=== PATIENT | male | born 1945 | race Caucasian/White ===

== ENCOUNTER 2024-08-14 07:07 | Inpatient (IN) | payer BC ==
[~2024-08-14] VITALS: Ht 185.4 cm; Wt 81.0 kg
[2024-08-14 07:30] VITALS: PULSE 97; RESP 22; O2SAT 95
[2024-08-14] MEDS: ipratropium/albuterol 3ml nebule NEB ONE (07:35)
[2024-08-14 07:38] VITALS: PULSE 83; RESP 22; O2SAT 98
[2024-08-14 07:39] LABS: BASOPHILS % (AUTO) 0.6 % (0-1); EOSINOPHILS # (AUTO) 0.4 X10'3 (0-0.9); EOSINOPHILS % (AUTO) 5.7 % (0-6); HEMATOCRIT 42.3 % (42.0-52.0); HEMOGLOBIN 13.7 g/dl (14.0-17.9); LYMPHOCYTES # (AUTO) 0.9 X10'3 (1.1-4.8); LYMPHOCYTES % (AUTO) 12.2 % (21-51); MEAN CORPUSCULAR HEMOGLOBIN 28.7 PG (27.0-31.0); MEAN CORPUSCULAR HGB CONC 32.4 g/dL (33.0-36.5); MEAN CORPUSCULAR VOLUME 88.7 FL (78-98); MEAN PLATELET VOLUME 9.8 FL (7.4-10.4); MONOCYTES # (AUTO) 0.5 X10'3 (0-0.9); MONOCYTES % (AUTO) 6.7 % (2-12); NEUTROPHILS # (AUTO) 5.3 X10'3 (1.8-7.7); NEUTROPHILS % (AUTO) 74.8 % (42-75); PLATELET COUNT 96 X10'3 (140-440); RED BLOOD COUNT 4.77 X10'6 (4.70-6.10); RED CELL DISTRIBUTION WIDTH 14.2 % (11.5-14.5); WHITE BLOOD COUNT 7.2 X10'3 (4.5-11.0)
[2024-08-14 08:06] LABS: ALANINE AMINOTRANSFERASE 13 U/L (12-78); ALBUMIN 3.4 G/DL (3.4-5.0); ALBUMIN/GLOBULIN RATIO 0.8 (1.1-1.5); ALKALINE PHOSPHATASE 83 IU/L (46-116); ANION GAP 7 (8-16); ASPARTATE AMINO TRANSFERASE 21 U/L (10-37); BILIRUBIN,TOTAL 0.4 MG/DL (0.1-1.0); BLOOD UREA NITROGEN 30 MG/DL (7-18); CALCIUM 8.8 MG/DL (8.5-10.1); CHLORIDE 100 MMOL/L (99-107); CREATININE 1.43 MG/DL (0.60-1.10); GLUCOSE 254 MG/DL (70-104); POTASSIUM 4.5 MMOL/L (3.5-5.1); PRO BRAIN NATRIURETIC PEPTIDE 951 PG/ML (0-450); SODIUM 137 MMOL/L (135-145); TOTAL CARBON DIOXIDE 29.6 MMOL/L (24-32); TOTAL PROTEIN 7.9 G/DL (6.4-8.2); eGFR 48 ML/MIN
[2024-08-14] MEDS: methylPREDNISolone sod succ 125mg/2ml vial IV ONE (08:09)
[2024-08-14] MEDS: CefTRIAXone 2gm/D5W 50ml BAG 50 ML IV ONE (09:27)
[2024-08-14] MEDS: normal saline 1000ML IV soln IVB ONE ×3 (09:27→11:30)
[2024-08-14] MEDS: azithromycin/NS 500mg/250ml 250 ML IV STA (09:32)
[2024-08-14] MEDS ORDERED: HYDROcodone/acetaminophen 5mg/325mg tablet PO PRN (09:45)
[2024-08-14] MEDS ORDERED: ondansetron/PF 4mg/2ml inj IV PRN (09:45)
[2024-08-14] MEDS: PERFLUTREN PROTEIN-A MICROSPHR (Optison) 0.22 MG/ML 3ML VIAL IV ONE (09:45)
[2024-08-14] MEDS ORDERED: HYDROcodone/acetaminophen 10/325mg tab PO PRN (09:45)
[2024-08-14] MEDS ORDERED: acetaminophen 325mg tablet PO PRN ×2 (09:45)
[2024-08-14] MEDS ORDERED: potassium Cl 20 mEq SR tablet PO PRN ×2 (09:45)
[2024-08-14] MEDS ORDERED: magnesium hydroxide 30ml (MOM) UD suspension PO PRN (09:45)
[2024-08-14] MEDS ORDERED: potassium Cl 40MEQ/1/2NS 520ml 520 ML IV PRN (09:45)
[2024-08-14] MEDS ORDERED: mag hydrox/Alum hydrox/simeth 30ml oral suspension PO PRN (09:45)
[2024-08-14 10:22] LABS: ABG HCO3 25.4 mmol/L (21.0-28.0); ABG OXYGEN SATURATION 92.7 % (94.0-98.0); ABG PCO2 (T) 44.2 mmHg (35.0-48.0); ABG PH (T) 7.378 (7.350-7.450); ABG PO2 (T) 64.9 mmHg (83.0-108.0); ALLEN'S TEST POSITIVE; FCOHb 0.3 % (0.5-1.5); FHHb 7.3 % (0.0-5.0); FMetHb 0.1 % (0.0-1.5); FO2Hb 92.3 % (94.0-98.0); TOTAL HEMOGLOBIN 13.1 G/dl (13.5-17.5)
[2024-08-14] MEDS: normal saline 1000ml 1,000 ML IV SCH (11:31)
[2024-08-14] MEDS ORDERED: glucagon, human recombinant 1mg kit SUBCUT PRN (11:50)
[2024-08-14] MEDS ORDERED: DEXTROSE 15 GM of carb/4 tabs (each vial/BOTTLE has 4 tablets) PO PRN ×2 (11:50)
[2024-08-14] MEDS ORDERED: dextrose 50%-water 50ml dispensing syringe IV PRN ×2 (11:50)
[2024-08-14] MEDS: INSULIN LISPRO 100 UNIT/ML INSULN.PEN MULTI-DOSE SQ SCH (12:00)
[2024-08-14 12:31] LABS: BILIRUBIN,URINE NEGATIVE (Neg); CLARITY,URINE CLOUDY (Clear); COLOR,URINE YELLOW (Yellow); GLUCOSE, URINE 250 mg/dl (Neg); KETONES,URINE NEGATIVE (Neg); LEUKOCYTE ESTERASE ,URINE SMALL (Neg); NITRITES, URINE POSITIVE (Neg); OCCULT BLOOD,URINE MODERATE (Neg); PROTEIN,URINE 30 mg/dl (Neg); UROBILINOGEN,URINE 0.2 E.U/dL (0.2-1.0)
[2024-08-14 12:41] LABS: UA COLLECTION TYPE OTHER
[2024-08-14 12:42] LABS: BACTERIA,URINE 4+ /HPF (Neg); SQUAMOUS EPITHELIAL CELL,UR FEW /LPF (FEW)
[2024-08-14 12:43] LABS: AMORPHOUS URATES 3+
[2024-08-14 12:44] LABS: WBC CLUMPS,URINE FEW /HPF (NEGATIVE); WBC,URINE 50-100 /HPF (0-4)
[2024-08-14 12:51] LABS: HEMOGLOBIN A1C 7.9 % (4.5-6.2)
[2024-08-14 19:30] VITALS: BP 122/64; PULSE 68; RESP 22; TEMP 97.4; O2SAT 94
[2024-08-14 20:00] VITALS: RESP 20; O2SAT 94
[2024-08-14] MEDS: K and/or MAG REPLACEMENT MC SCH (20:00)
[2024-08-14 22:00] VITALS: BP 139/77; PULSE 59; RESP 21; TEMP 97.6; O2SAT 94
[2024-08-14] MEDS: docusate sod 100mg capsule PO SCH (22:03)
[2024-08-14] MEDS: heparin, porcine 5000 units/ml vial SQ SCH (22:04)
[2024-08-14] MEDS: methylPREDNISolone sod succ 125mg/2ml vial IV SCH (22:04)
[2024-08-14] MEDS: insulin glargine (Lantus) pen - multi-dose SQ SCH (22:08)
[2024-08-15] VITALS (20 sets, daily range): BP systolic 100–152; BP diastolic 65–98; PULSE 26–98; RESP 18–28; TEMP 97.3–98.5; O2SAT 88–97
[2024-08-15] MEDS: CefTRIAXone/D5W-Rocephin 1gm 50 ML IV SCH (07:32)
[2024-08-15] MEDS: azithromycin 250mg tablet PO SCH (07:33)
[2024-08-15 07:40] LABS: BASOPHILS % (AUTO) 0.1 % (0-1); EOSINOPHILS % (AUTO) 0 % (0-6); HEMATOCRIT 40.6 % (42.0-52.0); HEMOGLOBIN 13.3 g/dl (14.0-17.9); LYMPHOCYTES # (AUTO) 0.4 X10'3 (1.1-4.8); LYMPHOCYTES % (AUTO) 4.4 % (21-51); MEAN CORPUSCULAR HEMOGLOBIN 28.6 PG (27.0-31.0); MEAN CORPUSCULAR HGB CONC 32.8 g/dL (33.0-36.5); MEAN CORPUSCULAR VOLUME 87.3 FL (78-98); MEAN PLATELET VOLUME 10.7 FL (7.4-10.4); MONOCYTES # (AUTO) 0.1 X10'3 (0-0.9); MONOCYTES % (AUTO) 1.4 % (2-12); NEUTROPHILS # (AUTO) 8.8 X10'3 (1.8-7.7); NEUTROPHILS % (AUTO) 94.1 % (42-75); PLATELET COUNT 112 X10'3 (140-440); RED BLOOD COUNT 4.66 X10'6 (4.70-6.10); RED CELL DISTRIBUTION WIDTH 14.2 % (11.5-14.5); WHITE BLOOD COUNT 9.3 X10'3 (4.5-11.0)
[2024-08-15] MEDS: ipratropium/albuterol 3ml nebule NEB PRN (08:07)
[2024-08-15 08:15] LABS: ALANINE AMINOTRANSFERASE 26 U/L (12-78); ALBUMIN 3.4 G/DL (3.4-5.0); ALBUMIN/GLOBULIN RATIO 0.8 (1.1-1.5); ALKALINE PHOSPHATASE 71 IU/L (46-116); ANION GAP 10 (8-16); ASPARTATE AMINO TRANSFERASE 27 U/L (10-37); BILIRUBIN,TOTAL 0.4 MG/DL (0.1-1.0); BLOOD UREA NITROGEN 27 MG/DL (7-18); BUN/CREATININE RATIO 19.9 (10.0-20.0); CALCIUM 8.6 MG/DL (8.5-10.1); CHLORIDE 101 MMOL/L (99-107); CREATININE 1.36 MG/DL (0.60-1.10); GLUCOSE 234 MG/DL (70-104); MAGNESIUM 1.5 MG/DL (1.5-2.4); SODIUM 138 MMOL/L (135-145); TOTAL CARBON DIOXIDE 26.9 MMOL/L (24-32); TOTAL PROTEIN 7.8 G/DL (6.4-8.2); eCRCL 50 ML/MIN; eGFR 51 ML/MIN
[2024-08-15] MEDS: diphenhydrAMINE 25mg capsule PO ONE ×2 (08:22→08:24)
[2024-08-15] MEDS: hydrALAZINE 20mg/ml inj. ONE (09:02)
[2024-08-15] MEDS: LORazepam 2 mg/ml vial ONE (09:03)
[2024-08-15] MEDS: hydrALAZINE 20mg/ml inj. IV ONE (09:07)
[2024-08-15] MEDS: LORazepam 2 mg/ml vial IV ONE (09:08)
[2024-08-15 09:26] LABS: ABG BASE EXCESS -0.4 mmol/L (-2.0-3.0); ABG HCO3 24.8 mmol/L (21.0-28.0); ABG OXYGEN SATURATION 93.6 % (94.0-98.0); ABG PCO2 (T) 42.5 mmHg (35.0-48.0); ABG PH (T) 7.384 (7.350-7.450); ABG PO2 (T) 70.7 mmHg (83.0-108.0); ALLEN'S TEST POSITIVE; FCOHb 0.5 % (0.5-1.5); FHHb 6.3 % (0.0-5.0); FLOW 2 L/min; FMetHb 0.3 % (0.0-1.5); FO2Hb 92.9 % (94.0-98.0); MODE NASAL CANNULA
[2024-08-15] MEDS: insulin Lispro (HumaLOG) vial - multi-dose SQ SCH (09:35)
[2024-08-15] MEDS: furosemide 40mg/4ml inj IV ONE (09:56)
[2024-08-15] MEDS: furosemide 40mg/4ml inj ONE (10:50)
[2024-08-15] MEDS: ipratropium/albuterol 3ml nebule NEB SCH (11:28)
[2024-08-15] MEDS: albuterol 2.5 MG/3 ML nebule NEB PRN (12:34)
[2024-08-15] MEDS: budesonide 0.5mg/2ml UD nebule IH SCH (19:42)
[2024-08-16] VITALS (19 sets, daily range): BP systolic 111–215; BP diastolic 69–113; PULSE 62–85; RESP 14–22; TEMP 97.1–98.6; O2SAT 88–97
[2024-08-16] MEDS: hydrALAZINE 20mg/ml inj. IV ONE (03:32)
[2024-08-16] MEDS: losartan 50mg tablet PO SCH (07:40)
[2024-08-16] MEDS ORDERED: hydrALAZINE 20mg/ml inj. IV PRN (08:10)
[2024-08-16 08:17] LABS: BASOPHILS % (AUTO) 0.2 % (0-1); EOSINOPHILS # (AUTO) 0.1 X10'3 (0-0.9); EOSINOPHILS % (AUTO) 0.8 % (0-6); HEMATOCRIT 42.5 % (42.0-52.0); HEMOGLOBIN 13.9 g/dl (14.0-17.9); LYMPHOCYTES # (AUTO) 1.1 X10'3 (1.1-4.8); LYMPHOCYTES % (AUTO) 13.5 % (21-51); MEAN CORPUSCULAR HEMOGLOBIN 28.7 PG (27.0-31.0); MEAN CORPUSCULAR HGB CONC 32.8 g/dL (33.0-36.5); MEAN CORPUSCULAR VOLUME 87.5 FL (78-98); MEAN PLATELET VOLUME 9.8 FL (7.4-10.4); MONOCYTES # (AUTO) 0.6 X10'3 (0-0.9); MONOCYTES % (AUTO) 6.7 % (2-12); NEUTROPHILS # (AUTO) 6.5 X10'3 (1.8-7.7); NEUTROPHILS % (AUTO) 78.8 % (42-75); PLATELET COUNT 113 X10'3 (140-440); RED BLOOD COUNT 4.85 X10'6 (4.70-6.10); RED CELL DISTRIBUTION WIDTH 14.3 % (11.5-14.5); WHITE BLOOD COUNT 8.3 X10'3 (4.5-11.0)
[2024-08-16 08:33] LABS: ALANINE AMINOTRANSFERASE 30 U/L (12-78); ALBUMIN 3.4 G/DL (3.4-5.0); ALBUMIN/GLOBULIN RATIO 0.9 (1.1-1.5); ALKALINE PHOSPHATASE 63 IU/L (46-116); ANION GAP 5 (8-16); ASPARTATE AMINO TRANSFERASE 37 U/L (10-37); BILIRUBIN,TOTAL 0.4 MG/DL (0.1-1.0); BLOOD UREA NITROGEN 26 MG/DL (7-18); BUN/CREATININE RATIO 17.7 (10.0-20.0); CALCIUM 8.3 MG/DL (8.5-10.1); CHLORIDE 99 MMOL/L (99-107); CREATININE 1.47 MG/DL (0.60-1.10); GLUCOSE 172 MG/DL (70-104); MAGNESIUM 1.3 MG/DL (1.5-2.4); POTASSIUM 3.8 MMOL/L (3.5-5.1); SODIUM 136 MMOL/L (135-145); TOTAL CARBON DIOXIDE 31.9 MMOL/L (24-32); TOTAL PROTEIN 7.4 G/DL (6.4-8.2); eCRCL 46 ML/MIN; eGFR 46 ML/MIN
[2024-08-16] MEDS: magnesium sulf-water 2g/50mL 50 ML IV PRN (12:31)
[2024-08-16] MEDS: magnesium sulf-water 4G/100mL 100 ML IV PRN (15:19)
[2024-08-16] MEDS ORDERED: VITA1CAP PO (17:17)
[2024-08-16] MEDS ORDERED: FLO0.4C PO (17:17)
[2024-08-16] MEDS ORDERED: LOSA-415 PO (17:17)
[2024-08-16] MEDS ORDERED: ATOR10TA87 PO (17:17)
[2024-08-16] MEDS ORDERED: PARO20TA6 PO (17:17)
[2024-08-16] MEDS ORDERED: LEVO100C4 PO (17:17)
[2024-08-16] MEDS ORDERED: ALBU8HFA INH (17:17)
[2024-08-16] MEDS: tamsulosin 0.4mg capsule PO SCH (22:05)
[2024-08-17] VITALS (12 sets, daily range): BP systolic 91–162; BP diastolic 58–80; PULSE 69–80; RESP 16–20; TEMP 97.5–98; O2SAT 88–97
[2024-08-17] MEDS: levoTHYROXINE 100mcg tablet PO SCH (07:23)
[2024-08-17] MEDS: vitamin B comp w/Vit. C tab 1 TAB TABLET PO SCH (07:23)
[2024-08-17] MEDS: PARoxetine 20mg tablet PO SCH (07:24)
[2024-08-17] MEDS: atorvastatin 10mg tablet PO SCH (07:27)
[2024-08-17] MEDS: losartan 50mg tablet PO SCH (08:00)
[2024-08-17 08:19] LABS: BASOPHILS % (AUTO) 0.2 % (0-1); EOSINOPHILS # (AUTO) 0.3 X10'3 (0-0.9); EOSINOPHILS % (AUTO) 4.2 % (0-6); HEMOGLOBIN 13.8 g/dl (14.0-17.9); LYMPHOCYTES # (AUTO) 1.2 X10'3 (1.1-4.8); LYMPHOCYTES % (AUTO) 15.8 % (21-51); MEAN CORPUSCULAR HEMOGLOBIN 29.1 PG (27.0-31.0); MEAN CORPUSCULAR HGB CONC 32.9 g/dL (33.0-36.5); MEAN CORPUSCULAR VOLUME 88.5 FL (78-98); MEAN PLATELET VOLUME 10.3 FL (7.4-10.4); MONOCYTES # (AUTO) 0.5 X10'3 (0-0.9); MONOCYTES % (AUTO) 7.1 % (2-12); NEUTROPHILS # (AUTO) 5.3 X10'3 (1.8-7.7); NEUTROPHILS % (AUTO) 72.7 % (42-75); PLATELET COUNT 119 X10'3 (140-440); RED BLOOD COUNT 4.75 X10'6 (4.70-6.10); RED CELL DISTRIBUTION WIDTH 14.5 % (11.5-14.5); WHITE BLOOD COUNT 7.3 X10'3 (4.5-11.0)
[2024-08-17 08:40] LABS: ALANINE AMINOTRANSFERASE 37 U/L (12-78); ALBUMIN 3.1 G/DL (3.4-5.0); ALBUMIN/GLOBULIN RATIO 0.8 (1.1-1.5); ALKALINE PHOSPHATASE 62 IU/L (46-116); ANION GAP 6 (8-16); ASPARTATE AMINO TRANSFERASE 41 U/L (10-37); BILIRUBIN,TOTAL 0.5 MG/DL (0.1-1.0); BLOOD UREA NITROGEN 31 MG/DL (7-18); BUN/CREATININE RATIO 19.9 (10.0-20.0); CALCIUM 8.2 MG/DL (8.5-10.1); CHLORIDE 100 MMOL/L (99-107); CREATININE 1.56 MG/DL (0.60-1.10); GLUCOSE 122 MG/DL (70-104); MAGNESIUM 2.4 MG/DL (1.5-2.4); POTASSIUM 4.1 MMOL/L (3.5-5.1); SODIUM 137 MMOL/L (135-145); eCRCL 43 ML/MIN; eGFR 43 ML/MIN
[2024-08-17] MEDS ORDERED: atorvastatin 10mg tablet PO SCH (13:27)
== END 2024-08-17 17:07 | DRG 193 ==
LOC: ER 07:08 → ED HOLD 09:52 → PCU 3S 19:07
PROVIDERS: ADMIT Family Medicine; ATTEND Family Medicine
DX: J15.9 Unspecified bacterial pneumonia (principal); J96.20 Acute and chronic respiratory failure, unspecified whether with hypoxia or hypercapnia; J44.1 Chronic obstructive pulmonary disease with (acute) exacerbation; N39.0 Urinary tract infection, site not specified; J44.0 Chronic obstructive pulmonary disease with (acute) lower respiratory infection; E11.9 Type 2 diabetes mellitus without complications; G35 Multiple sclerosis; I10 Essential (primary) hypertension; Z20.822 Contact with and (suspected) exposure to COVID-19; N31.9 Neuromuscular dysfunction of bladder, unspecified; Z66 Do not resuscitate; Z87.891 Personal history of nicotine dependence; I95.9 Hypotension, unspecified; I16.0 Hypertensive urgency; Z79.84 Long term (current) use of oral hypoglycemic drugs; Z82.49 Family history of ischemic heart disease and other diseases of the circulatory system; Z88.8 Allergy status to other drugs, medicaments and biological substances
CPT/HCPCS: 36415; 36600; 71045; 80053; 81001; 82803; 82948; 83036; 83605; 83735; 83880; 84145; 84484; 85018; 85025; 87040; 87077; 87081; 87088; 87186; 87811; 92508; 92616; 93005; 93306; 94640; 94760; 96365; 96367; 96375; 97161; 97530; 99285; A4314; A4615; A4624; A6258; G0378; J0360; J0456; J0696; J1644; J1815; J1940; J2060; J2919; J3475; J7030; Q0163

== ENCOUNTER 2025-01-29 01:46 | Inpatient (IN) | payer BC ==
[2025-01-29] VITALS (14 sets, daily range): BP systolic 135–143; BP diastolic 56–72; PULSE 57–89; RESP 14–26; TEMP 97.4–98; O2SAT 88–99
[~2025-01-29] VITALS: Ht 182.9 cm; Wt 81.0 kg
[~2025-01-29 01:46] MED LIST: ALBU8HFA INH; ATOR10TA87 PO; FLO0.4C PO; LEVO100C5 PO; LOSA-415 PO; PARO20TA6 PO; VITA1CAP PO
[2025-01-29 02:32] LABS: BASOPHILS # (AUTO) 0.1 X10'3 (0-0.2); BASOPHILS % (AUTO) 0.4 % (0-1); EOSINOPHILS # (AUTO) 0.2 X10'3 (0-0.9); EOSINOPHILS % (AUTO) 1.5 % (0-6); HEMOGLOBIN 13.5 g/dl (14.0-17.9); LYMPHOCYTES # (AUTO) 0.6 X10'3 (1.1-4.8); LYMPHOCYTES % (AUTO) 4.6 % (21-51); MEAN CORPUSCULAR HEMOGLOBIN 28.1 PG (27.0-31.0); MEAN CORPUSCULAR HGB CONC 32.8 g/dL (33.0-36.5); MEAN CORPUSCULAR VOLUME 85.8 FL (78-98); MEAN PLATELET VOLUME 10.5 FL (7.4-10.4); MONOCYTES # (AUTO) 0.8 X10'3 (0-0.9); MONOCYTES % (AUTO) 5.9 % (2-12); NEUTROPHILS # (AUTO) 11.4 X10'3 (1.8-7.7); NEUTROPHILS % (AUTO) 87.6 % (42-75); PLATELET COUNT 91 X10'3 (140-440); RED BLOOD COUNT 4.78 X10'6 (4.70-6.10); RED CELL DISTRIBUTION WIDTH 14.3 % (11.5-14.5)
[2025-01-29 02:37] LABS: ALBUMIN 3.2 G/DL (3.4-5.0); ANION GAP 6 (8-16); BLOOD UREA NITROGEN 22 MG/DL (7-18); BUN/CREATININE RATIO 11.1 (10.0-20.0); CALCIUM 8.7 MG/DL (8.5-10.1); CHLORIDE 99 MMOL/L (99-107); CREATININE 1.98 MG/DL (0.60-1.10); GLUCOSE 369 MG/DL (70-104); POTASSIUM 4.5 MMOL/L (3.5-5.1); SODIUM 137 MMOL/L (135-145); TOTAL CARBON DIOXIDE 32.3 MMOL/L (24-32); eCRCL 33 ML/MIN; eGFR 33 ML/MIN
[2025-01-29 02:46] LABS: BILIRUBIN,URINE NEGATIVE (Neg); CLARITY,URINE CLOUDY (Clear); COLOR,URINE YELLOW (Yellow); GLUCOSE, URINE >=1000 mg/dl (Neg); KETONES,URINE NEGATIVE (Neg); LEUKOCYTE ESTERASE ,URINE SMALL (Neg); NITRITES, URINE POSITIVE (Neg); OCCULT BLOOD,URINE MODERATE (Neg); PROTEIN,URINE TRACE mg/dl (Neg); UROBILINOGEN,URINE 0.2 E.U/dL (0.2-1.0)
[2025-01-29 02:56] LABS: UA COLLECTION TYPE NON-SPECIFIED
[2025-01-29 02:57] LABS: BACTERIA,URINE 2+ /HPF (Neg); SQUAMOUS EPITHELIAL CELL,UR FEW /LPF (FEW)
[2025-01-29 02:58] LABS: YEAST MANY /HPF (NEGATIVE)
[2025-01-29] MEDS: cephalexin 250mg capsule PO ONE (03:21)
[2025-01-29] MEDS: LORazepam 1 MG tablet PO ONE (03:27)
[2025-01-29] MEDS ORDERED: BETA15CR4 (04:06)
[2025-01-29] MEDS ORDERED: IPRA3AMP31 (04:06)
[2025-01-29] MEDS ORDERED: EMPA25TA PO (04:06)
[2025-01-29] MEDS ORDERED: TAMSULOSIN PO (04:06)
[2025-01-29] MEDS ORDERED: LEVO100T9 PO (04:06)
[2025-01-29] MEDS: midazolam 1 mg/ML 2ml injection IV ONE (04:32)
[2025-01-29] MEDS ORDERED: magnesium sulf-water 2g/50mL 50 ML IV PRN (05:40)
[2025-01-29] MEDS ORDERED: morphine 2 MG/ML inj. syringe IV PRN ×2 (05:40)
[2025-01-29] MEDS ORDERED: potassium Cl 20 mEq SR tablet PO PRN ×2 (05:40)
[2025-01-29] MEDS ORDERED: ondansetron/PF 4mg/2ml inj IV PRN (05:40)
[2025-01-29] MEDS ORDERED: potassium Cl 40MEQ/1/2NS 520ml 520 ML IV PRN (05:40)
[2025-01-29] MEDS ORDERED: magnesium hydroxide 30ml (MOM) UD suspension PO PRN (05:40)
[2025-01-29] MEDS ORDERED: acetaminophen 325mg tablet PO PRN (05:40)
[2025-01-29] MEDS ORDERED: magnesium sulf-water 4G/100mL 100 ML IV PRN (05:40)
[2025-01-29] MEDS ORDERED: magnesium Cl slow-release 64mg tablet PO PRN (05:40)
[2025-01-29] MEDS ORDERED: mag hydrox/Alum hydrox/simeth 30ml oral suspension PO PRN (05:40)
[2025-01-29] MEDS: normal saline 1000ml 1,000 ML IV SCH (06:24)
[2025-01-29] MEDS: piperacillin/tazo 3.375gm/50ml 50 ML IV SCH (06:24)
[2025-01-29] MEDS: methylPREDNISolone sod succ 125mg/2ml vial IV SCH (06:30)
[2025-01-29] MEDS: normal saline 1000ml 1,000 ML IV ONE (06:30)
[2025-01-29] MEDS ORDERED: glucagon, human recombinant 1mg kit SUBCUT PRN (06:40)
[2025-01-29] MEDS ORDERED: DEXTROSE 15 GM of carb/4 tabs (each vial/BOTTLE has 4 tablets) PO PRN ×2 (06:40)
[2025-01-29] MEDS ORDERED: dextrose 50%-water 50ml dispensing syringe IV PRN ×2 (06:40)
[2025-01-29] MEDS ORDERED: INSULIN LISPRO 100 UNIT/ML INSULN.PEN MULTI-DOSE SQ SCH (07:00)
[2025-01-29 07:25] LABS: POTASSIUM 4.7 MMOL/L (3.5-5.1)
[2025-01-29] MEDS: K and/or MAG REPLACEMENT MC SCH (08:00)
[2025-01-29] MEDS: docusate sod 100mg capsule PO SCH (08:00)
[2025-01-29] MEDS: heparin, porcine 5000 units/ml vial SQ SCH (08:00)
[2025-01-29] MEDS: ipratropium/albuterol 3ml nebule NEB SCH (08:04)
[2025-01-29] MEDS ORDERED: albuterol 2.5 MG/3 ML nebule NEB PRN (08:45)
[2025-01-29] MEDS: INSULIN LISPRO 100 UNIT/ML INSULN.PEN MULTI-DOSE SQ SCH ×3 (09:00→13:44)
[2025-01-29 09:34] LABS: ABG BASE EXCESS 1.2 mmol/L (-2.0-3.0); ABG HCO3 26.9 mmol/L (21.0-28.0); ABG OXYGEN SATURATION 99.3 % (94.0-98.0); ABG PH (T) 7.376 (7.350-7.450); ABG PO2 (T) 234.8 mmHg (83.0-108.0); ALLEN'S TEST POSITIVE; FCOHb 0.3 % (0.5-1.5); FHHb 0.7 % (0.0-5.0); FMetHb 0.3 % (0.0-1.5); FO2Hb 98.7 % (94.0-98.0); MODE MASK - BIPAP; RESPIRATORY RATE 10 b/min; TOTAL HEMOGLOBIN 13.4 G/dl (13.5-17.5)
[2025-01-29 14:22] LABS: ABG BASE EXCESS 0.9 mmol/L (-2.0-3.0); ABG HCO3 25.3 mmol/L (21.0-28.0); ABG OXYGEN SATURATION 97.3 % (94.0-98.0); ABG PCO2 (T) 39.1 mmHg (35.0-48.0); ABG PH (T) 7.428 (7.350-7.450); ALLEN'S TEST POSITIVE; FCOHb 1.4 % (0.5-1.5); FHHb 2.7 % (0.0-5.0); FMetHb 0.3 % (0.0-1.5); FO2Hb 95.6 % (94.0-98.0); MODE MASK - BIPAP; PATIENT TEMPERATURE 36.8; TOTAL HEMOGLOBIN 13.4 G/dl (13.5-17.5)
[2025-01-29] MEDS: budesonide 0.5mg/2ml UD nebule IH SCH (20:50)
[2025-01-29] MEDS: insulin glargine (Lantus) pen - multi-dose SQ SCH (22:14)
[2025-01-30] VITALS (19 sets, daily range): BP systolic 94–155; BP diastolic 62–82; PULSE 60–94; RESP 14–24; TEMP 97.1–98; O2SAT 91–95
[2025-01-30 06:03] LABS: BASOPHILS % (AUTO) 0.1 % (0-1); EOSINOPHILS % (AUTO) 0 % (0-6); HEMATOCRIT 38.6 % (42.0-52.0); HEMOGLOBIN 12.7 g/dl (14.0-17.9); LYMPHOCYTES # (AUTO) 0.2 X10'3 (1.1-4.8); LYMPHOCYTES % (AUTO) 2.2 % (21-51); MEAN CORPUSCULAR HEMOGLOBIN 28.5 PG (27.0-31.0); MEAN CORPUSCULAR HGB CONC 32.9 g/dL (33.0-36.5); MEAN CORPUSCULAR VOLUME 86.6 FL (78-98); MEAN PLATELET VOLUME 10.8 FL (7.4-10.4); MONOCYTES # (AUTO) 0.1 X10'3 (0-0.9); MONOCYTES % (AUTO) 0.9 % (2-12); NEUTROPHILS # (AUTO) 8.2 X10'3 (1.8-7.7); NEUTROPHILS % (AUTO) 96.8 % (42-75); PLATELET COUNT 79 X10'3 (140-440); RED BLOOD COUNT 4.45 X10'6 (4.70-6.10); RED CELL DISTRIBUTION WIDTH 14.4 % (11.5-14.5); WHITE BLOOD COUNT 8.5 X10'3 (4.5-11.0)
[2025-01-30 06:22] LABS: ALANINE AMINOTRANSFERASE 19 U/L (12-78); ALBUMIN 2.8 G/DL (3.4-5.0); ALBUMIN/GLOBULIN RATIO 0.7 (1.1-1.5); ALKALINE PHOSPHATASE 86 IU/L (46-116); ANION GAP 14 (8-16); ASPARTATE AMINO TRANSFERASE 40 U/L (10-37); BILIRUBIN,TOTAL 0.7 MG/DL (0.1-1.0); BLOOD UREA NITROGEN 32 MG/DL (7-18); BUN/CREATININE RATIO 16.7 (10.0-20.0); CALCIUM 8.8 MG/DL (8.5-10.1); CHLORIDE 102 MMOL/L (99-107); CREATININE 1.92 MG/DL (0.60-1.10); GLUCOSE 325 MG/DL (70-104); MAGNESIUM 1.9 MG/DL (1.5-2.4); POTASSIUM 4.6 MMOL/L (3.5-5.1); SODIUM 139 MMOL/L (135-145); TOTAL CARBON DIOXIDE 23.3 MMOL/L (24-32); eCRCL 34 ML/MIN; eGFR 34 ML/MIN
[2025-01-30] MEDS: INSULIN LISPRO 100 UNIT/ML INSULN.PEN MULTI-DOSE SQ SCH ×3 (09:00→18:00)
[2025-01-30] MEDS ORDERED: hydrALAZINE 20mg/ml inj. IV PRN (11:30)
[2025-01-30] MEDS: methylPREDNISolone sod succ/PF 40mg inj. IV SCH (19:50)
[2025-01-30] MEDS: insulin glargine (Lantus) pen - multi-dose SQ SCH (22:24)
[2025-01-31] VITALS (16 sets, daily range): BP systolic 126–159; BP diastolic 58–78; PULSE 53–70; RESP 14–20; TEMP 97.2–98.3; O2SAT 91–97
[2025-01-31 07:29] LABS: BASOPHILS % (AUTO) 0.2 % (0-1); EOSINOPHILS % (AUTO) 0 % (0-6); HEMATOCRIT 37.4 % (42.0-52.0); HEMOGLOBIN 12.3 g/dl (14.0-17.9); LYMPHOCYTES # (AUTO) 0.3 X10'3 (1.1-4.8); LYMPHOCYTES % (AUTO) 2.4 % (21-51); MEAN CORPUSCULAR HEMOGLOBIN 28.2 PG (27.0-31.0); MEAN CORPUSCULAR HGB CONC 32.9 g/dL (33.0-36.5); MEAN CORPUSCULAR VOLUME 85.7 FL (78-98); MONOCYTES # (AUTO) 0.3 X10'3 (0-0.9); MONOCYTES % (AUTO) 2.2 % (2-12); NEUTROPHILS % (AUTO) 95.2 % (42-75); PLATELET COUNT 86 X10'3 (140-440); RED BLOOD COUNT 4.37 X10'6 (4.70-6.10); RED CELL DISTRIBUTION WIDTH 14.6 % (11.5-14.5); WHITE BLOOD COUNT 12.6 X10'3 (4.5-11.0)
[2025-01-31 08:05] LABS: ALANINE AMINOTRANSFERASE 32 U/L (12-78); ALBUMIN 2.7 G/DL (3.4-5.0); ALBUMIN/GLOBULIN RATIO 0.7 (1.1-1.5); ALKALINE PHOSPHATASE 77 IU/L (46-116); ANION GAP 9 (8-16); ASPARTATE AMINO TRANSFERASE 92 U/L (10-37); BILIRUBIN,TOTAL 0.5 MG/DL (0.1-1.0); BLOOD UREA NITROGEN 47 MG/DL (7-18); BUN/CREATININE RATIO 25.4 (10.0-20.0); CALCIUM 8.5 MG/DL (8.5-10.1); CHLORIDE 103 MMOL/L (99-107); CREATININE 1.85 MG/DL (0.60-1.10); GLUCOSE 236 MG/DL (70-104); POTASSIUM 4.3 MMOL/L (3.5-5.1); SODIUM 137 MMOL/L (135-145); TOTAL CARBON DIOXIDE 25.1 MMOL/L (24-32); TOTAL PROTEIN 6.7 G/DL (6.4-8.2); eCRCL 35 ML/MIN; eGFR 35 ML/MIN
[2025-01-31 09:02] LABS: PLATELET ESTIMATE DECREASED
[2025-01-31 09:03] LABS: LARGE PLATELETS FEW
[2025-01-31] MEDS: insulin glargine (Lantus) pen - multi-dose SQ SCH (22:46)
[2025-02-01] VITALS (7 sets, daily range): BP systolic 108–116; BP diastolic 77–79; PULSE 60–94; RESP 14–18; TEMP 97.4–97.5; O2SAT 92–97
[2025-02-01 07:01] LABS: BASOPHILS % (AUTO) 0.2 % (0-1); EOSINOPHILS % (AUTO) 0 % (0-6); HEMATOCRIT 37.2 % (42.0-52.0); HEMOGLOBIN 12.3 g/dl (14.0-17.9); LYMPHOCYTES # (AUTO) 0.3 X10'3 (1.1-4.8); LYMPHOCYTES % (AUTO) 3.3 % (21-51); MEAN CORPUSCULAR HEMOGLOBIN 28.1 PG (27.0-31.0); MEAN CORPUSCULAR HGB CONC 33.2 g/dL (33.0-36.5); MEAN CORPUSCULAR VOLUME 84.8 FL (78-98); MEAN PLATELET VOLUME 10.5 FL (7.4-10.4); MONOCYTES # (AUTO) 0.1 X10'3 (0-0.9); MONOCYTES % (AUTO) 1.2 % (2-12); NEUTROPHILS # (AUTO) 9.1 X10'3 (1.8-7.7); NEUTROPHILS % (AUTO) 95.3 % (42-75); PLATELET COUNT 89 X10'3 (140-440); RED BLOOD COUNT 4.39 X10'6 (4.70-6.10); RED CELL DISTRIBUTION WIDTH 14.5 % (11.5-14.5); WHITE BLOOD COUNT 9.5 X10'3 (4.5-11.0)
[2025-02-01 07:30] LABS: ALANINE AMINOTRANSFERASE 30 U/L (12-78); ALBUMIN 2.6 G/DL (3.4-5.0); ALBUMIN/GLOBULIN RATIO 0.7 (1.1-1.5); ALKALINE PHOSPHATASE 65 IU/L (46-116); ANION GAP 10 (8-16); ASPARTATE AMINO TRANSFERASE 49 U/L (10-37); BILIRUBIN,TOTAL 0.6 MG/DL (0.1-1.0); BLOOD UREA NITROGEN 48 MG/DL (7-18); BUN/CREATININE RATIO 29.4 (10.0-20.0); CALCIUM 8.2 MG/DL (8.5-10.1); CHLORIDE 106 MMOL/L (99-107); CREATININE 1.63 MG/DL (0.60-1.10); GLUCOSE 126 MG/DL (70-104); MAGNESIUM 1.9 MG/DL (1.5-2.4); POTASSIUM 4.1 MMOL/L (3.5-5.1); SODIUM 139 MMOL/L (135-145); TOTAL CARBON DIOXIDE 23.4 MMOL/L (24-32); TOTAL PROTEIN 6.3 G/DL (6.4-8.2); eCRCL 40 ML/MIN; eGFR 41 ML/MIN
[2025-02-01] MEDS: levoTHYROXINE 100mcg tablet PO SCH (08:24)
[2025-02-01] MEDS: INSULIN LISPRO 100 UNIT/ML INSULN.PEN MULTI-DOSE SQ SCH (09:00)
[2025-02-01] MEDS ORDERED: AMOX-580 PO (11:27)
[2025-02-01] MEDS ORDERED: NEED-136 SUBCUT (11:27)
[2025-02-01] MEDS ORDERED: PRED20TA PO (11:27)
[2025-02-01] MEDS ORDERED: INSU300I12 SQ (11:27)
== END 2025-02-01 13:30 | disposition home health service (06) | DRG 871 ==
LOC: ER 01:46 → ED HOLD 05:44 → EDBEDREQ 06:52 → EDBEDREQTM 06:52 → PCU 3S 09:45
PROVIDERS: ADMIT Internal Medicine; ATTEND Family Medicine
PROC: 5A09357 Assistance with Respiratory Ventilation, Less than 24 Consecutive Hours, Continuous Positive Airway Pressure (ICD-10-PCS; principal; 2025-01-29)
DX: A41.9 Sepsis, unspecified organism (principal); G93.41 Metabolic encephalopathy; J15.9 Unspecified bacterial pneumonia; J69.0 Pneumonitis due to inhalation of food and vomit; J96.21 Acute and chronic respiratory failure with hypoxia; T83.518A Infection and inflammatory reaction due to other urinary catheter, initial encounter; N39.0 Urinary tract infection, site not specified; J44.0 Chronic obstructive pulmonary disease with (acute) lower respiratory infection; J44.1 Chronic obstructive pulmonary disease with (acute) exacerbation; E03.9 Hypothyroidism, unspecified; E11.65 Type 2 diabetes mellitus with hyperglycemia; N40.0 Benign prostatic hyperplasia without lower urinary tract symptoms; Y83.8 Other surgical procedures as the cause of abnormal reaction of the patient, or of later complication, without mention of misadventure at the time of the procedure; Z66 Do not resuscitate; G35 Multiple sclerosis; R29.6 Repeated falls; Z88.8 Allergy status to other drugs, medicaments and biological substances; Z79.84 Long term (current) use of oral hypoglycemic drugs; Z79.4 Long term (current) use of insulin; Z87.440 Personal history of urinary (tract) infections; Z93.59 Other cystostomy status; Z82.49 Family history of ischemic heart disease and other diseases of the circulatory system; Z80.6 Family history of leukemia; Y92.89 Other specified places as the place of occurrence of the external cause; F03.90 Unspecified dementia, unspecified severity, without behavioral disturbance, psychotic disturbance, mood disturbance, and anxiety
CPT/HCPCS: 36415; 36600; 70450; 71045; 73521; 80048; 80053; 81001; 82803; 82948; 83036; 83605; 83735; 84132; 84145; 85008; 85018; 85025; 85379; 87077; 87081; 87088; 87186; 92508; 92616; 93005; 94640; 94660; 94760; 97110; 97116; 97162; 97530; 99285; A6212; A6213; A6223; A6446; A6449; G0378; J1815; J2250; J2543; J2919; J7030; J7040